=== PATIENT | male | born 1940 | race Caucasian/White ===

== ENCOUNTER 2018-08-04 17:11 | Emergency (ER) | payer MEDICARE ==
[2018-08-04] MEDS ORDERED: Lidocaine 1% w/Epinephrine 1:100K 20 ML VIAL ONE (17:38)
[2018-08-04] MEDS ORDERED: Adacel (T-DAP) 0.5 ML VIAL ONE (17:39)
[2018-08-04] MEDS ORDERED: Bacitracin Zinc 1 Packet ONE (19:02)
== END 2018-08-04 19:13 | disposition home or self-care (01) ==
LOC: ERS 17:11
DX: S61.214A Laceration without foreign body of right ring finger without damage to nail, initial encounter (principal); I48.91 Unspecified atrial fibrillation; I10 Essential (primary) hypertension; Z87.891 Personal history of nicotine dependence; Z23 Encounter for immunization; Z79.899 Other long term (current) drug therapy; W26.8XXA Contact with other sharp object(s), not elsewhere classified, initial encounter
CPT/HCPCS: 12002; 90471; 90715; J2001